=== PATIENT | female | born 1995 | race African-American/Black ===

== ENCOUNTER 2017-08-29 19:33 | Emergency (ER) | payer OTHER ==
[~2017-08-29] VITALS: Ht 170.2 cm; Wt 63.0 kg
[2017-08-29 19:52] VITALS: BP 154/81; PULSE 86; RESP 16; TEMP 98.4; O2SAT 99
[2017-08-29] MEDS ORDERED: ORPHENADRINE INJ 60 MG/2 ML AMP IM ONE (20:15)
[2017-08-29] MEDS ORDERED: KETOROLAC TROMETHAMINE 60 MG/2 ML (IM) VIAL IM ONE (20:15)
--- NOTE | 2017-08-29 20:23 | PD ---
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 Denies encopresis, incontinence, saddle anesthesias. Denies chest pain, shortness of breath, vomiting. Denies paresthesias, loss of sensation, decreased range of motion, decreased strength all extremities. Denies change in gait. Says she is walking slow because painful to move her back. Has taken Tylenol extra strength for symptom management with no relief. Rates pain 7/10. Describes as stabbing. Worse with movement. No known relieving factors. Allergies to penicillin and IV contrast. No primary care provider. Denies significant past medical history. Has no other medical complaints. No other modifying factors or associated signs and symptoms. PFSH Past Medical History Tetanus Vaccination: < 5 Years Influenza Vaccination: Yes ?: Not LMP: 08/29/17 Ovarian Cysts: Yes Past Surgical History Abdominal Surgery: Yes (lap procedure for endometriosis) Social History Alcohol Use: No Tobacco Use: No Substance Use: No Allergies-Medications (Allergen,Severity, Reaction): Coded Allergies: Iodinated Contrast- Oral and IV Dye (Verified Allergy, Severe, Hives, 08/29) Penicillins (Verified Allergy, Severe, Hives, 08/29/17) Reported Meds & Prescriptions Reported Meds & Active Scripts Active Flexeril (Cyclobenzaprine HCl) 10 Mg Tab 10 Mg PO TID PRN Ibuprofen 800 Mg Tab 800 Mg PO Q6HR PRN Review of Systems Except as stated in HPI: all other systems reviewed are Neg Physical Exam Narrative GENERAL: Well-nourished, well-developed black female patient, in no acute distress; afebrile, nontoxic-appearing SKIN: Warm and dry. HEAD: Atraumatic. Normocephalic. EYES: Pupils equal and round. No scleral icterus. No injection or drainage. ENT: Mucosa pink and moist. Airway patent. NECK: Trachea midline. Moving freely. No midline tenderness on palpation of the cervical spine. Active rotation greater than 45 left and right. CARDIOVASCULAR: Regular rate. RESPIRATORY: No accessory muscle use. GASTROINTESTINAL: Flat. MUSCULOSKELETAL: Right upper extremity with full range of motion and greater than 90 abduction of the shoulder. Bilateral lower extremities supple and non- tense with 2+ pedal pulses and sensory intact; with full range of motion and 5/ 5 strength. 2+ DTRs bilaterally. Active dorsiflexion and extension of bilateral feet. Bilateral straight leg raise is negative for reproducible back pain. Ambulatory in room with guarded gait. Sitting up in bed at 90. No obvious deformities. No clubbing. No cyanosis. No edema. BACK: No midline point tenderness on palpation of the thoracic spine. Tenderness on palpation of right breast paraspinal area reproducible tenderness to the trapezius muscle just below the scapula on the right. No obvious deformities. NEUROLOGICAL: Awake and alert. Oriented 3. No obvious cranial nerve deficits. Motor grossly within normal limits. Normal speech. Moves all extremities. 5/5 strength to all extremities. Sensory intact. PSYCHIATRIC: Appropriate mood and affect; insight and judgment normal. Data Data Last Documented VS Vital Signs Date Time Temp Pulse Resp B/P (MAP) Pulse Ox O2 Delivery O2 Flow Rate FiO2 08/29/17 19:52 98.4 86 16 154/81 (105) 99 Orders Orders Ketorolac Inj (Toradol Inj) (08/29/17 20:15) Orphenadrine Inj (Norflex Inj) (08/29/17 20:15) Ed Discharge Order (08/29/17 20:38) [facility] Medical Decision Making Medical Screen Exam Complete: Yes Emergency Medical Condition: Yes Medical Record Reviewed: Yes Differential Diagnosis Muscle strain, muscle spasm, medical clearance Narrative Course 22-year-old female, [employer] employee, with strain of muscle and tendon of the back wall of the thorax, and spasm of thoracic back muscle. Denies encopresis, incontinence, saddle anesthesias. Neuro exam is unremarkable. Patient able to train the room with a normal gait. No midline tenderness on patient of the thoracic spine. Toradol and Norflex administered in the ER. Ibuprofen, tramadol, Robaxin prescribed for home. Instructed patient to follow up with primary care provider. Patient verbalizes understanding and agreement with treatment plan. Patient is medically cleared and stable for discharge. Discussed reasons to return to the emergency department. Patient agrees with treatment plan. The patients vital signs are stable and the patient is stable for outpatient follow-up and treatment. Patient discharged home, stable and in no acute distress. Diagnosis Primary Impression: Strain of muscle and tendon of back wall of thorax, initial encounter Additional Impression: Spasm of thoracic back muscle Ref[place]: [facility] [place] [place] [facility] Primary Care Physician Patient Instructions: General Instructions, Muscle Spasm (ED), Muscle Strain ( ED) Additional Instructions: Tylenol or ibuprofen as directed and as needed for pain Robaxin as prescribed and as needed for muscle spasms Heating pad and/or ice to affected area to reduce pain Avoid aggravating activities; increase activity as tolerated Follow-up with primary care provider Follow-up with workman's comp; call [facility] [employer] resource office for information for follow-up Return to emergency department immediately with worsening of symptoms Med/Other Pt SpecificInfo: Prescription(s) given Scripts Methocarbamol (Robaxin) 500 Mg Tab 500 MG PO QID Y for MUSCLE SPASM, #30 TAB 0 Refills Prov: Hanna Lange 08/29/17 Tramadol (Tramadol) 50 Mg Tab 50 MG PO Q4H Y for PAIN, #10 TAB 0 Refills Prov: Hanna Lange 08/29/17 Ibuprofen (Ibuprofen) 800 Mg Tab 800 MG PO Q6HR Y for PAIN, #30 TAB 0 Refills Prov: Hanna Lange 08/29/17 Disposition: 01 DISCHARGE HOME Condition: Stable Hanna Lange Aug 29, 2017 20:23
[2017-08-29] MEDS ORDERED: CYCL10TA PO (20:25)
[2017-08-29] MEDS ORDERED: IBUP1TAB7 PO (20:25)
[2017-08-29] MEDS ORDERED: TRAM50TA PO (20:46)
[2017-08-29] MEDS ORDERED: ROBA500T PO (20:49)
== END 2017-08-29 20:56 | disposition home or self-care (01) ==
LOC: NEPK 19:33
DX: S29.012A Strain of muscle and tendon of back wall of thorax, initial encounter (principal); M62.830 Muscle spasm of back; X50.0XXA Overexertion from strenuous movement or load, initial encounter; Y93.F2 Activity, caregiving, lifting; Y99.0 Civilian activity done for income or pay; Z88.0 Allergy status to penicillin
CPT/HCPCS: 96372; 99283; J1885; J2360